=== PATIENT | female | born 1965 | race Caucasian/White ===

== ENCOUNTER 2017-05-08 12:39 | Emergency (ER) | payer BC, OTHER ==
--- NOTE | 2017-05-08 15:20 | UC ---
Upper Extremity HPI - HPI Summary HPI Summary: 52 y/o female presents to the urgent care c/o RT thumb pain s/p injury sorting sheep 2 weeks ago. Patient states at the beginning her pain was not severe. however, for the past 3 days she can't flex her thumb and now she is feeling numbness and tingling sensation at the tip her thumb. IIt's mildly swollen. Pain is 4/10 w/ movement and 0/10 at rest. Pt denies fever, SOB, chest pain N/V/ D. Pt has not other complains. - History of Current Complaint Chief Complaint: UCUpperExtremity Stated Complaint: THUMB COMPLAINT Time Seen by Provider: 05/08/17 15:04 Hx Obtained From: Patient Hx Last Menstrual Period: 05/02/17 ?: No Onset/Duration: Sudden Onset, Lasting Weeks, Still Present Severity Initially: Mild Severity Currently: Moderate Pain Intensity: 4 - movement Pain Scale Used: 0-10 Numeric Location Of Pain: Is Discrete @ - RT thumb Character: Throbbing Aggravating Factor(s): Movement, Flexion Alleviating Factor(s): Heat Associated Signs And Symptoms: Positive: Swelling - mild, Numbness/Tingling. Negative: Fever - Risk Factors Non-Orthopedic Risk Factor: Negative DVT Risk Factors: Negative Septic Arthritis Risk Factor: Negative - Allergies/Home Medications Allergies/Adverse Reactions: Allergies Allergy/AdvReac Type Severity Reaction Status Date / Time Codeine Allergy Severe Anaphylatic Verified 05/08/17 13:36 Shock Aminoglycosides Allergy Intermediate Swelling Verified 05/08/17 13:36 Amoxicillin Allergy Hives/Diff. Verified 05/08/17 13:38 Breathing/I tching PMH/Surg Hx/FS Hx/Imm Hx Other Endocrine History: Penicious anemia Other Cardiovascular History: Long QT syndrome GI/ History: Ulcer - gastric ulcers Other History Of: Negative For: Anticoagulant Therapy - Surgical History Surgical History: Yes Surgery Procedure, Year, and Place: gastric bypass in 2003 done in [place] for insurance purposes. some plastic sx following bypass - Family History Known Family History: Positive: Cardiac Disease - Long QT syndrome, Diabetes - Social History Occupation: Employed Full-time Lives: With Family Alcohol Use: None Alcohol Amount: 1/2 glass wine Substance Use Type: None Smoking Status (MU): Never Smoked Tobacco - Immunization History Most Recent Influenza Vaccination: 06/14 Most Recent Tetanus Shot: <5years ago Most Recent Pneumonia Vaccination: unkown Review of Systems Constitutional: Negative Skin: Negative Eyes: Negative ENT: Negative Respiratory: Negative Cardiovascular: Negative Gastrointestinal: Negative Genitourinary: Negative Motor: Negative Neurovascular: Negative Musculoskeletal: Other: - RT thumb pain w/ numbness and tingling Neurological: Negative Psychological: Negative All Other Systems Reviewed And Are Negative: Yes Physical Exam Triage Information Reviewed: Yes Appearance: Well-Appearing, No Pain Distress, Well-Nourished, Thin Vital Signs: Initial Vital Signs Temp 98.8 F 05/08/17 13:30 Pulse 74 05/08/17 13:30 Resp 18 05/08/17 13:30 BP 105/70 05/08/17 13:30 Pulse Ox 100 05/08/17 13:30 Vital Signs Reviewed: Yes Eye Exam: Normal Eyes: Positive: Conjunctiva Clear - PERRLA, EOMI ENT Exam: Normal ENT: Positive: Normal ENT inspection, Hearing grossly normal, Pharynx normal, TMs normal Dental Exam: Normal Neck exam: Normal Neck: Positive: Supple, Nontender, No Lymphadenopathy Respiratory Exam: Normal Respiratory: Positive: Chest non-tender, Lungs clear, Normal breath sounds Cardiovascular Exam: Normal Cardiovascular: Positive: RRR, No Murmur, Pulses Normal Abdominal Exam: Normal Abdomen Description: Positive: Nontender, No Organomegaly, Soft. Negative: CVA Tenderness (R), CVA Tenderness (L) Bowel Sounds: Positive: Present Musculoskeletal Exam: Normal Musculoskeletal: Positive: Strength Intact, No Edema, ROM Limited @ - RT thumb w / limited flexion due to pain, no erythema observed, mild swelling at the PIPJ. sensation and capilary refill intact. pulses wnl Neurological Exam: Normal Psychological Exam: Normal Skin Exam: Normal Upper Extremity Course/Dx - Course Course Of Treatment: 52 y/o female presents to the urgent care c/o RT thumb pain s/p injury sorting sheep 2 weeks ago. Patient states at the beginning her pain was not severe. however, for the past 3 days she can't flex his thumb and now she is feeling numbness and tingling sensation at the tip her thumb. It mildly swollen. Pain is 4/*10 w/ movement and 0/10 at rest. Pt denies fever, SOB, chest pain N/V/D. Hx obtained. RT thumb x-ray ordered, Impression: negative. Pt's thumb immobilized w/ a thumb spica. Advised RICE and take Tylenol q4-6hr prn and if not improvement of symptoms to f/u with her PCP or orthopedic. Pt understood and agreed. - Differential Dx/Diagnosis Differential Diagnosis/HQI/PQRI: Contusion, Fracture (Closed), Strain, Sprain Provider Diagnoses: 1- Acute RT thumb pain. Discharge - Discharge Plan Condition: Stable Disposition: HOME Patient Education Materials: Finger Sprain (ED) Referrals: Adi Humphreys DO [Primary Care Provider] - 1 Week Additional Instructions: Please keep thumb immobilized, applied ice, and rest. continue taking Tylenol q4 -6hrs prn to alleviate pain and swelling. If symptoms do not improve or worsen please f/u with you PCP for further evaluation and treatment.
--- NOTE | 2017-05-08 15:40 | RAD ---
INDICATION: Right thumb pain COMPARISON: None TECHNIQUE: AP, lateral, and oblique views were obtained. FINDINGS: The bony structures, joint spaces, and soft tissues are normal for age. IMPRESSION: NEGATIVE EXAMINATION.
[2017-05-08 16:05] VITALS: BP 98/72
== END 2017-05-08 15:55 | disposition home or self-care (01) ==
LOC: UCEAST 12:39
DX: M79.644 Pain in right finger(s) (principal); Z88.5 Allergy status to narcotic agent; Z88.0 Allergy status to penicillin
CPT/HCPCS: 99212; G0463

== ENCOUNTER 2018-05-15 16:06 | Emergency (ER) | payer BC, OTHER ==
--- NOTE | 2018-05-15 16:35 | UC ---
Cardiac HPI - HPI Summary HPI Summary: The pt is a 53 y/o female with a PMhx of Long QT syndrome presenting to c/o L lower CP under her breast since 2 days ago worse today. The intermittent pain is described as sharp and rated 5/10 at its worst. She notes cough and R ear pain but denies insomnia ,nausea, diaphoresis , SOB , dental pain , edema of the LE, and abd pain. The CP does not radiate. She had a stress test with Dr Naun Ro at [facility] and is currently on Beta blockers. This is scribe Beba Lazo documenting for attending Dr. Petersen. I, Dr. Petersen , personally performed the services described in this documentation as scribed in my presence and it is both accurate and complete. - History of Current Complaint Stated Complaint: ABDOMINAL PAIN Time Seen by Provider: 05/15/18 16:19 Hx Obtained From: Patient Hx Last Menstrual Period: 05/02/17 Onset/Duration: Lasting Days - 2 days, Still Present, Worse Since - Today Timing: Intermittent Episodes Lasting: - 1-2 hours Initial Severity: Worse Since: - Today Character: Sharp/Stabbing Aggravating Factor(s): Nothing Alleviating Factor(s): Nothing Associated Signs & Symptoms: Positive: Chest Pain, Cough. Negative: SOB, Nausea /Vomiting, Abdominal Pain, Calf Pain/Swelling - Allergy/Home Medications Allergies/Adverse Reactions: Allergies Allergy/AdvReac Type Severity Reaction Status Date / Time codeine Allergy Severe Anaphylatic Verified 05/15/18 16:49 Shock Aminoglycosides Allergy Intermediate Swelling Verified 05/15/18 16:49 amoxicillin Allergy Hives/Diff. Verified 05/15/18 16:49 Breathing/I tching contrast dye Allergy Rash Uncoded 01/01/18 13:22 PMH/Surg Hx/FS Hx/Imm Hx Previously Healthy: No - PMHx of Long QT syndrome and gestational DM ; Denies a PMHx of HTN and HLD Other History Of: Negative For: Anticoagulant Therapy - Surgical History Surgical History: Yes Surgery Procedure, Year, and Place: gastric bypass in 2003 done in [place] for insurance purposes. some plastic sx following bypass - Family History Known Family History: Positive: Cardiac Disease - Long QT syndrome, Diabetes - Social History Occupation: Employed Full-time Lives: With Family Alcohol Use: None Alcohol Amount: 2 glass wine Substance Use Type: None Smoking Status (MU): Never Smoked Tobacco - Immunization History Most Recent Influenza Vaccination: 06/14 Most Recent Tetanus Shot: <5years ago Most Recent Pneumonia Vaccination: unkown Review of Systems Constitutional: Negative - Insomnia, Skin: Negative - Diaphoresis ENT: Ear Ache - R ear Respiratory: Cough, Other - Positve: L lower CP Gastrointestinal: Negative - Dental pain, nausea, abd pain Musculoskeletal: Negative - edema and pain of the LE All Other Systems Reviewed And Are Negative: Yes Physical Exam - Summary Physical Exam Summary: General: well-appearing, no pain distress Skin: warm, color reflects adequate perfusion, dry Head: normal Eyes: EOMI, PRASANTH ENT: Tenderness to palpation of the R tragus and with traction of the R pinnae ; L ear is normal Neck: supple, nontender Respiratory: CTA, breath sounds present Cardiovascular: RRR Abdomen: soft, nontender Bowel: present Musculoskeletal: normal, strength/ROM intact Neurological: sensory/motor intact, A&O x3 Psychological: affect/mood appropriate Triage Information Reviewed: Yes Vital Signs: Vital Signs: Temp Pulse Resp BP Pulse Ox 98 F 72 18 107/76 97 05/15/18 16:11 05/15/18 16:11 05/15/18 16:11 05/15/18 16:11 05/15/18 16:11 Vital Signs Reviewed: Yes Diagnostics - EKG EKG Comments: 16:16 Borderline prolonged QT with QTC of 492 Cardiac Rate: NL Cardiac Rhythm: Sinus: Normal - 69 bpm Ectopy: None - Assessment/Plan Course Of Treatment: I RECOMMENDED GOING DIRECTLY TO THE EMERGENCY DEPARTMENT FOR FURTHER EVAUATION OF CHEST PAIN. - Clinical Impression Provider Diagnoses: RIGHT EAR PAIN. CHEST PAIN Discharge - Sign-Out/Discharge Documenting (check all that apply): Patient Departure - Discharge Plan Condition: Stable Disposition: HOME Prescriptions: Neomyc/Polym/HC 1% OTIC SUSP* [Cortisporin Otic Susp 1%*] 4 drop RIGHT EAR QID # 1 [id number] Patient Education Materials: Chest Pain (ED), Earache (ED) Referrals: Adi Humphreys DO [Primary Care Provider] - Additional Instructions: GO DIRECTLY TO THE EMERGENCY DEPARTMENT FOR FURTHER EVALUATION OF YOUR CHEST PAIN. FOLLOW UP WITH YOUR DOCTOR. GET RECHECKED FOR ANY WORSENING OF YOUR CONDITION OR QUESTIONS OR CONCERNS. - Billing Disposition and Condition Condition: STABLE Disposition: Home
[2018-05-15 16:43] VITALS: BP 107/76
== END 2018-05-15 16:50 | disposition home or self-care (01) ==
LOC: UCEAST 16:06
DX: R07.89 Other chest pain (principal); H92.01 Otalgia, right ear; R05 Cough; Z88.1 Allergy status to other antibiotic agents; Z88.5 Allergy status to narcotic agent; Z88.0 Allergy status to penicillin; Z91.041 Radiographic dye allergy status; Z82.49 Family history of ischemic heart disease and other diseases of the circulatory system; Z83.3 Family history of diabetes mellitus
CPT/HCPCS: 93005; 99212; G0463

== ENCOUNTER 2018-06-29 14:16 | Emergency (ER) | payer BC, OTHER ==
[2018-06-29] MEDS ORDERED: Acetaminophen TAB* 325 MG PO ONE (15:23)
--- NOTE | 2018-06-29 15:45 | RAD ---
INDICATION: Right foot injury. TECHNIQUE: 3 views of the right foot were obtained. FINDINGS: The bones are in normal alignment. No fracture is seen. Joint spaces appear maintained. IMPRESSION: NO EVIDENCE FOR FRACTURE. IF THE PATIENT'S SYMPTOMS PERSIST RECOMMEND FOLLOW-UP IMAGING.
--- NOTE | 2018-06-29 15:49 | UC ---
Lower Extremity/Ankle HPI - HPI Summary HPI Summary: Patient is a 53-year-old female that presents here with right foot pain. A 200 pound shahida stepped on her right foot. She is unable to bear weight. - History of Current Complaint Chief Complaint: UCLowerExtremity Stated Complaint: STEPPED ON BY FARM AMINAL Time Seen by Provider: 06/29/18 15:17 Hx Obtained From: Patient Hx Last Menstrual Period: 05/02/17 Onset/Duration: Sudden Onset, Lasting Hours Severity Initially: Severe Severity Currently: Mild Pain Intensity: 3 - worse with wt bearing Aggravating Factor(s): Standing, Ambulation Alleviating Factor(s): Rest, Elevation Able to Bear Weight: No - Allergies/Home Medications Allergies/Adverse Reactions: Allergies Allergy/AdvReac Type Severity Reaction Status Date / Time codeine Allergy Severe Anaphylatic Verified 06/29/18 14:26 Shock Aminoglycosides Allergy Intermediate Swelling Verified 06/29/18 14:26 amoxicillin Allergy Hives/Diff. Verified 06/29/18 14:26 Breathing/I tching contrast dye Allergy Rash Uncoded 06/29/18 14:26 Home Medications: Home Medications Escitalopram Oxalate [Lexapro 10 mg] 1 tab PO DAILY 06/29/18 [History Confirmed 06/29/18] PMH/Surg Hx/FS Hx/Imm Hx Previously Healthy: Yes Cardiovascular History: Hypertension, Other Other Cardiovascular History: prolonged QT GI/ History: Ulcer Other History Of: Negative For: Anticoagulant Therapy - Surgical History Surgical History: Yes Surgery Procedure, Year, and Place: gastric bypass in 2003 done in [place] for insurance purposes. some plastic sx following bypass. endoscopies - Family History Known Family History: Positive: Cardiac Disease - Long QT syndrome, Diabetes - Social History Alcohol Use: None Alcohol Amount: 1/2 glass wine Substance Use Type: Marijuana Substance Use Comment - Amount & Last Used: marinol, prescribed Smoking Status (MU): Never Smoked Tobacco - Immunization History Most Recent Influenza Vaccination: 06/14 Most Recent Tetanus Shot: <5years ago Most Recent Pneumonia Vaccination: unkown Review of Systems Constitutional: Negative Skin: Negative Eyes: Negative ENT: Negative Respiratory: Negative Cardiovascular: Negative Gastrointestinal: Negative Genitourinary: Negative Motor: Negative Neurovascular: Negative Musculoskeletal: Arthralgia Neurological: Negative Psychological: Negative Is Patient Immunocompromised?: No All Other Systems Reviewed And Are Negative: Yes Physical Exam Triage Information Reviewed: Yes Appearance: Well-Appearing, No Pain Distress, Well-Nourished Vital Signs: Initial Vital Signs Temp 99.1 F 06/29/18 14:19 Pulse 74 06/29/18 14:19 Resp 18 06/29/18 14:19 BP 96/56 06/29/18 14:19 Pulse Ox 99 06/29/18 14:19 Vital Signs Reviewed: Yes Eyes: Positive: Conjunctiva Clear ENT: Positive: Hearing grossly normal. Negative: Nasal congestion, Nasal drainage, Trismus, Muffled voice, Hoarse voice Neck: Positive: Supple, Nontender, No Lymphadenopathy Respiratory: Positive: Lungs clear, Normal breath sounds, No respiratory distress, No accessory muscle use Cardiovascular: Positive: RRR, No Murmur Musculoskeletal: Positive: Other: - see image Neurological: Positive: Alert Skin Exam: Normal Diagnostics - Radiology No standard instances Xray Interpretation: No Acute Changes Radiology Interpretation Completed By: Radiologist Lower Extremity Course/Dx - Differential Dx/Diagnosis Provider Diagnoses: right foot contusion Discharge - Sign-Out/Discharge Documenting (check all that apply): Patient Departure All imaging exams completed and their final reports reviewed: Yes - Discharge Plan Condition: Stable Disposition: HOME Patient Education Materials: Crutch Instructions (ED), Contusion in Adults (ED) Referrals: Adi Humphreys DO [Primary Care Provider] - 5 Days Additional Instructions: no fracture noted rest ice elevation tylenol crutches CAM boot You can start wt bearing as tolerated - Billing Disposition and Condition Condition: STABLE Disposition: Home Images Feet (Multiple View): 1 - swollen/tender
[2018-06-29 16:42] VITALS: BP 94/56
== END 2018-06-29 16:35 | disposition home or self-care (01) ==
LOC: UCEAST 14:16
DX: S90.31XA Contusion of right foot, initial encounter (principal); W55.39XA Other contact with other hoof stock, initial encounter; Y93.9 Activity, unspecified; Y92.79 Other farm location as the place of occurrence of the external cause; Z88.5 Allergy status to narcotic agent; Z88.0 Allergy status to penicillin; Z88.1 Allergy status to other antibiotic agents; Z91.041 Radiographic dye allergy status
CPT/HCPCS: 99213; A9270-GY; G0463

== ENCOUNTER 2020-09-03 13:28 | Observation (INO) ==
[2020-09-03] MEDS ORDERED: Al Hydrox/Mg Hydrox/Simet LIQ 30 ML UDC PO ONE (15:19)
[2020-09-03] MEDS ORDERED: Pantoprazole VIAL 40 MG VIAL IV ONE (15:19)
[2020-09-03 15:28] LABS: ABS Lymphocytes 1.4 10^3/ul (1.0-4.8); ABS Monocytes 0.3 10^3/ul (0-0.8); ABS Neutrophils 6.1 10^3/ul (1.5-7.7); Eosinophil % 0.1 %; Hematocrit 47 % (35-47); Lymphocyte % 17.6 %; Mean Corpuscular HGB Conc 34 g/dL (31-36); Mean Corpuscular Hemoglobin 31 pg (27-31); Mean Corpuscular Volume 92 fL (80-97); Mean Platelet Volume 8.8 fL (7.4-10.4); Nucleated Red Blood Cells % 0.1; Platelet Count 302 10^3/uL (150-450); Red Blood Count 5.12 10^6 /uL (3.70-4.87); Red Cell Distribution Width 14 % (10-15); White Blood Count 7.7 10^3/uL (3.5-10.8)
[2020-09-03 15:45] LABS: Troponin I 0.02 ng/mL (<0.03)
[2020-09-03 15:46] LABS: Albumin 4.4 g/dL (3.2-5.2); Albumin/Globulin Ratio 1.5 (1-3); BUN/Creatinine Ratio 5.4 (8-20); C Reactive Protein 1.53 mg/L (<8.01); Calcium 9.9 mg/dL (8.6-10.3); EGFR African American 76.3 (>60); EGFR Non-African American 63.1 (>60); Potassium 3.5 mmol/L (3.5-5.0); Total Bilirubin 1.5 mg/dL (0.2-1.0); Total Protein 7.4 g/dL (6.4-8.9)
[2020-09-03] MEDS ORDERED: Prochlorperazine 5 mg/ml 2 ml VIAL (10 mg) IV ONE (15:55)
[2020-09-03] MEDS ORDERED: Pantoprazole 80 mg in NS BAG 80 MG/250 ML BAG IV ONE (17:49)
[2020-09-03 18:35] LABS: Urine Appearance Cloudy; Urine Bilirubin Negative (Negative); Urine Blood Negative (Negative); Urine Color Yellow; Urine Glucose Negative (Negative); Urine Ketones 2+ (Negative); Urine Nitrite Negative (Negative); Urine Protein Negative (Negative); Urine Specific Gravity 1.017 (1.010-1.030); Urine Urobilinogen Negative (Negative)
[2020-09-03] MEDS ORDERED: Lactated Ringers 1000 ml BAG 1,000 ML IV ONE (20:12)
[2020-09-03] MEDS ORDERED: NS 0.9% 1000 ml BAG 1,000 ML IV SCH (20:30)
[2020-09-04 05:37] LABS: ABS Eosinophils 0.1 10^3/ul (0-0.6); ABS Lymphocytes 2.3 10^3/ul (1.0-4.8); ABS Monocytes 0.4 10^3/ul (0-0.8); ABS Neutrophils 2.6 10^3/ul (1.5-7.7); Eosinophil % 1.7 %; Hematocrit 36 % (35-47); Lymphocyte % 42.8 %; Mean Corpuscular HGB Conc 34 g/dL (31-36); Mean Corpuscular Hemoglobin 31 pg (27-31); Mean Corpuscular Volume 94 fL (80-97); Mean Platelet Volume 8.8 fL (7.4-10.4); Nucleated Red Blood Cells % 0.1; Platelet Count 207 10^3/uL (150-450); Red Blood Count 3.82 10^6 /uL (3.70-4.87); Red Cell Distribution Width 14 % (10-15); White Blood Count 5.4 10^3/uL (3.5-10.8)
[2020-09-04 06:33] LABS: Calcium 8.2 mg/dL (8.6-10.3); Potassium 3.4 mmol/L (3.5-5.0)
[2020-09-04 06:38] LABS: BUN/Creatinine Ratio 6.1 (8-20); EGFR African American 88.2 (>60); EGFR Non-African American 72.9 (>60)
[2020-09-04] MEDS ORDERED: Influenza VAC *QUAD* 2020-21* 0.5 ML SYRINGE IM ONE (09:00)
[2020-09-04] MEDS ORDERED: NS 0.9% 1000 ml BAG 1,000 ML IV SCH (11:00)
[2020-09-04 12:13] LABS: Hematocrit 37 % (35-47); Hemoglobin 12.6 g/dL (12.0-16.0)
[2020-09-04] MEDS ORDERED: fentaNYL 100 mcg/2 ml 50 MCG/ML VIAL ONE (14:38)
[2020-09-04] MEDS ORDERED: Midazolam 10 mg/10 ml VIAL 1 mg/ml 10 ml VIAL (10 mg) ONE (14:39)
[2020-09-04] MEDS ORDERED: diPHENhydraMINE IV 50 MG/ML 1 ml VIAL (BENADRYL) ONE (15:08)
[2020-09-04] MEDS ORDERED: Sucralfate 1 gm SUSP 1 GM/10 ML UDC PO SCH (16:30)
[2020-09-04] MEDS ORDERED: Pantoprazole VIAL 40 MG VIAL IV SCH (17:00)
[2020-09-04 17:59] VITALS: BP 110/66
== END 2020-09-04 19:30 | disposition home or self-care (01) ==
LOC: ED 13:28 → SSU 13:28
PROVIDERS: ADMIT Internal Medicine; ATTEND Internal Medicine

== ENCOUNTER 2021-02-23 08:04 | Inpatient (IN) ==
[~2021-02-23 08:04] MED LIST: Buffered Lidocaine 1% SYRIN 1 ml INTRADERM ONE; Lactated Ringers 1000 ml BAG 1,000 ML IV SCH
[2021-02-23] MEDS ORDERED: Clindamycin 900 MG/D5W BAG 900 MG/50 ML BAG IVPB ONE (08:19)
[2021-02-23] MEDS ORDERED: Heparin 5000 UNITS/ML 1 mL VIAL ONE (08:19)
[2021-02-23] MEDS ORDERED: Buffered Lidocaine 1% SYRIN 1 ml INTRADERM ONE (08:33)
[2021-02-23] MEDS ORDERED: fentaNYL 250 mcg/5 ml 50 MCG/ML 5 ml VIAL (250 MCG) ONE (08:34)
[2021-02-23] MEDS ORDERED: Midazolam 2 mg/2 ml VIAL 1 mg/ml 2 ml VIAL (2 mg) ONE (08:34)
[2021-02-23] MEDS ORDERED: Propofol 10 MG/ML 20 ML BTL ONE (09:04)
[2021-02-23] MEDS ORDERED: Dexamethasone IV 4 MG/ML VIAL 1 ml VIAL ONE (09:04)
[2021-02-23] MEDS ORDERED: DiMENhydriNATE IV 50 mg/ml 1 ml VIAL ONE (09:04)
[2021-02-23] MEDS ORDERED: Rocuronium 50 mg VIAL 10 mg/ml 5 ml VIAL (50 mg) ONE (09:05)
[2021-02-23] MEDS ORDERED: Methylene Blue 0.5 % 50 MG/10 ML AMP IV ONE (09:13)
[2021-02-23] MEDS ORDERED: Bupivacaine 0.25% EPI 200,000 30 ML SDV ONE (09:13)
[2021-02-23 09:16] LABS: Calcium 8.6 mg/dL (8.6-10.3); EGFR African American 94.5 (>60); EGFR Non-African American 78.1 (>60); Magnesium 1.7 mg/dL (1.9-2.7); Potassium 3.1 mmol/L (3.5-5.0)
[2021-02-23] MEDS: NS 0.9% 1000 ml BAG 1,000 ML IV SCH ×2 (12:00→23:13)
[2021-02-23] MEDS ORDERED: Magnesium Sulfate 2 gm BAG 2 GM/50 ML BAG IVPB ONE (12:00)
[2021-02-23] MEDS: KCL 10 MEQ/50 ML IVPREMIX 10 MEQ/50 ML BAG IV SCH ×6 (12:03→18:57)
[2021-02-23 19:46] LABS: Calcium 7.6 mg/dL (8.6-10.3); EGFR African American 131.1 (>60); EGFR Non-African American 108.3 (>60); Magnesium 2.3 mg/dL (1.9-2.7)
[2021-02-24 03:19] LABS: Albumin 2.7 g/dL (3.2-5.2)
[2021-02-24 05:54] LABS: Calcium 7.7 mg/dL (8.6-10.3); Magnesium 1.9 mg/dL (1.9-2.7); Potassium 3.9 mmol/L (3.5-5.0)
[2021-02-24 06:00] LABS: EGFR African American 133.7 (>60); EGFR Non-African American 110.5 (>60)
[2021-02-24] MEDS ORDERED: Potassium Chloride LIQUID 20 MEQ/15 ML LIQUID PO ONE (09:47)
[2021-02-24] MEDS: NS 0.9% 1000 ml BAG 1,000 ML IV SCH ×2 (09:48→20:51)
[2021-02-24] MEDS ORDERED: Furosemide 20 mg/2 ml IV VIAL ONE (10:27)
[2021-02-24] MEDS ORDERED: Magnesium Sulfate 2 gm BAG 2 GM/50 ML BAG IVPB ONE (10:30)
[2021-02-24] MEDS: KCL 10 MEQ/50 ML IVPREMIX 10 MEQ/50 ML BAG IV SCH ×3 (12:25→17:22)
[2021-02-24] MEDS ORDERED: DiMENhydriNATE IV 50 mg/ml 1 ml VIAL IV PUSH ONE (12:38)
[2021-02-24] MEDS ORDERED: Buffered Lidocaine 1% SYRIN 1 ml INTRADERM ONE (12:38)
[2021-02-24] MEDS ORDERED: Lactated Ringers 1000 ml BAG 1,000 ML IV SCH (13:00)
[2021-02-24] MEDS ORDERED: KCL 10 MEQ/50 ML IVPREMIX 10 MEQ/50 ML BAG ONE (17:12)
[2021-02-25 06:06] LABS: Calcium 7.8 mg/dL (8.6-10.3); EGFR African American 136.5 (>60); EGFR Non-African American 112.8 (>60); Potassium 4.2 mmol/L (3.5-5.0)
[2021-02-25] MEDS: NS 0.9% 1000 ml BAG 1,000 ML IV SCH ×2 (06:59→20:37)
[2021-02-25] MEDS ORDERED: Rocuronium 50 mg VIAL 10 mg/ml 5 ml VIAL (50 mg) ONE ×2 (08:54→10:40)
[2021-02-25] MEDS ORDERED: Naloxone 0.4 mg VIAL 0.4 mg/ml 1 ml VIAL IV PRN (10:24)
[2021-02-25] MEDS ORDERED: Ondansetron 4 mg VIAL 2 MG/ML 2 ml VIAL IV PRN ×2 (10:24→20:16)
[2021-02-25] MEDS ORDERED: HYDROmorphone 1 MG/1 ML SYRINGE IV PRN (10:24)
[2021-02-25] MEDS ORDERED: fentaNYL 100 mcg/2 ml 50 MCG/ML VIAL IV PRN (10:24)
[2021-02-25] MEDS ORDERED: Bupivacaine 0.25% EPI 200,000 30 ML SDV ONE (10:30)
[2021-02-25] MEDS ORDERED: Methylene Blue 0.5 % 50 MG/10 ML AMP IV ONE (10:32)
[2021-02-25] MEDS ORDERED: fentaNYL 250 mcg/5 ml 50 MCG/ML 5 ml VIAL (250 MCG) ONE (10:40)
[2021-02-25] MEDS ORDERED: Midazolam 2 mg/2 ml VIAL 1 mg/ml 2 ml VIAL (2 mg) ONE (10:40)
[2021-02-25] MEDS ORDERED: Lidocaine 0.5% SDV 50 ML VIAL ONE (10:40)
[2021-02-25] MEDS ORDERED: Propofol 10 MG/ML 20 ML BTL ONE (10:40)
[2021-02-25] MEDS ORDERED: Buffered Lidocaine 1% SYRIN 1 ml INTRADERM ONE (11:55)
[2021-02-25] MEDS ORDERED: ceFAZolin 2 GM PREMIX 2 GM/50 ML BAG ONE (12:18)
[2021-02-25] MEDS ORDERED: Metoprolol Tartrate 5 mg VIAL 5 ml VIAL (1 mg/ml) ONE (14:46)
[2021-02-25] MEDS ORDERED: Acetaminophen IV 1 GM/100ML 100 ML ONE (16:39)
[2021-02-25] MEDS ORDERED: Dexamethasone IV 4 MG/ML VIAL 1 ml VIAL ONE (16:39)
[2021-02-25] MEDS ORDERED: Ondansetron 4 mg VIAL 2 MG/ML 2 ml VIAL ONE ×2 (16:39→18:32)
[2021-02-25] MEDS ORDERED: HYDROmorphone 1 MG/1 ML SYRINGE ONE (16:40)
[2021-02-25] MEDS ORDERED: Sevoflurane BOTTLE ONE (16:40)
[2021-02-25] MEDS ORDERED: DiMENhydriNATE IV 50 mg/ml 1 ml VIAL ONE (16:58)
[2021-02-25] MEDS: HYDROmorphone 0.5 MG/0.5 ML SYRINGE IV PRN (20:36)
[2021-02-26] MEDS: NS 0.9% 1000 ml BAG 1,000 ML IV SCH ×2 (06:40→16:39)
[2021-02-26] MEDS: HYDROmorphone 0.5 MG/0.5 ML SYRINGE IV PRN ×3 (11:50→21:24)
[2021-02-27] MEDS: NS 0.9% 1000 ml BAG 1,000 ML IV SCH (02:40)
[2021-02-27] MEDS: HYDROmorphone 0.5 MG/0.5 ML SYRINGE IV PRN (04:54)
[2021-02-28 11:34] VITALS: BP 145/82
== END 2021-02-28 14:30 | disposition home health service (06) | DRG 222 ==
LOC: AA 08:04 → INTOOBSV 08:04 → SSU 11:22
PROVIDERS: ADMIT Surgery; ATTEND Surgery